=== PATIENT | female | born 1960 | race African-American/Black ===

== ENCOUNTER 2022-05-10 19:18 | Emergency (ER) | payer OTHER ==
[~2022-05-10] VITALS: Ht 165.1 cm; Wt 94.3 kg
[2022-05-10] MEDS ORDERED: HYDROCODONE/APAP 5MG-325MG TAB PO ONE (20:00)
[2022-05-10] MEDS ORDERED: CYCLOBENZAPRINE HCL 10 MG TAB PO ONE (20:00)
[2022-05-10] MEDS ORDERED: CYCLOBENZAPRINE HCL 10 MG TAB ONE (20:21)
[2022-05-10] MEDS ORDERED: HYDROCODONE/APAP 5MG-325MG TAB ONE (20:21)
[2022-05-10] MEDS ORDERED: CYCLOBENZAPRINE5 MG PO ×2 (21:13→21:35)
[2022-05-10] MEDS ORDERED: MELOXICAM7.5 MG PO ×2 (21:13→21:35)
[2022-05-10] MEDS ORDERED: LORAZEPAM 0.5 MG TAB PO ONE (21:45)
[2022-05-10] MEDS ORDERED: LORAZEPAM 0.5 MG TAB ONE (21:54)
[2022-05-11] MEDS ORDERED: LORAZEPAM 0.5 MG TAB PO ONE
[2022-05-11] MEDS ORDERED: DIAZEPAM 2 MG TAB PO SCH (09:00)
== END 2022-05-10 22:00 | disposition home or self-care (01) ==
LOC: FSED 19:47
DX: R51.9 Headache, unspecified (principal); M54.2 Cervicalgia; E11.9 Type 2 diabetes mellitus without complications; G47.30 Sleep apnea, unspecified
CPT/HCPCS: 70450; 72125; 99283

== ENCOUNTER 2023-10-07 09:41 | Inpatient (IN) | payer OTHER ==
[~2023-10-07] VITALS: Ht 165.1 cm; Wt 92.5 kg
[~2023-10-07 09:41] MED LIST: CYCLOBENZAPRINE5 MG PO; MELOXICAM7.5 MG PO
[2023-10-07] MEDS ORDERED: METFORMIN HCL500 M2 PO (10:41)
[2023-10-07] MEDS ORDERED: LISINOPRIL10 MG PO (10:41)
[2023-10-07] MEDS ORDERED: ATORVASTATIN CA20 MG PO (10:41)
[2023-10-07] MEDS ORDERED: VITAMIN D350 MCG (10:41)
[2023-10-07] MEDS ORDERED: MULTIVITAMINS1 EAC6 PO (10:41)
[2023-10-07] MEDS: KETOROLAC TROMETHAMINE 30 MG/ML VIAL IV STA (12:14)
[2023-10-07] MEDS: ASPIRIN 81 MG CHEW TAB PO ONE (13:43)
[2023-10-07] MEDS ORDERED: ONDANSETRON HCL INJ 2MG/ML 2ML 2 MG/ML VIAL IV PRN (13:45)
[2023-10-07] MEDS ORDERED: NITROGLYCERIN 0.4 MG SUBL SL PRN (13:45)
[2023-10-07] MEDS ORDERED: SODIUM CHLORIDE FLUSH 10 ML SYR INJ PRN (13:45)
[2023-10-07] MEDS: INSULIN LISPRO 100 UNIT/1 ML 3ML VIAL SQ SCH (16:30)
[2023-10-07] MEDS ORDERED: DEXTROSE 50% SYRINGE 50 ML IV PRN (16:30)
[2023-10-07] MEDS ORDERED: HYDRALAZINE HCL 20 MG/ML VIAL IV PRN (16:30)
[2023-10-07] MEDS: METHYLPREDNISOLONE SOD SUCC 125 MG/2ML VIAL IV ONE (18:42)
[2023-10-07 20:21] LABS: TROPONIN I < 0.05 ng/mL (0.0-0.40)
[2023-10-07 20:40] VITALS: PULSE 65; RESP 20; TEMP 98.1
[2023-10-07 21:30] VITALS: BP 117/65; PULSE 65; RESP 18; TEMP 98.1; O2SAT 99
[2023-10-07] MEDS: ATORVASTATIN 20 MG TAB PO SCH (21:59)
[2023-10-07 22:38] LABS: CREATINE KINASE 130 IU/L (29-168)
[2023-10-08] VITALS (8 sets, daily range): BP systolic 118–128; BP diastolic 67–83; PULSE 55–79; RESP 18–20; TEMP 97.8–98.8; O2SAT 99–100
[2023-10-08 07:21] LABS: ALBUMIN 3.4 g/dL (3.5-5.0); ALBUMIN/GLOBULIN RATIO 1.1 (0.8-2.0); ANION GAP 12.5 mmol/L (8-16); BILIRUBIN,TOTAL 0.7 mg/dL (0.2-1.2); CALCIUM 8.9 mg/dL (8.4-10.2); CREATININE, SERUM 0.79 mg/dL (0.57-1.11); POTASSIUM 4.5 mmol/L (3.5-5.1); TOTAL PROTEIN 6.4 g/dL (6.5-8.1)
[2023-10-08 07:53] LABS: BASOPHILS % 0.6 % (0.0-1.0); EOSINOPHILS # (AUTO) 0.2 (0.0-0.4); EOSINOPHILS % 3.2 % (0.0-6.0); HEMOGLOBIN 12.5 g/dL (12.0-16.0); LYMPHOCYTES # (AUTO) 1.5 (1.0-3.2); LYMPHOCYTES % 32.3 % (18.0-39.1); MEAN CORPUSCULAR HEMOGLOBIN 29.8 pg (28-32); MEAN CORPUSCULAR HGB CONC 32.1 g/dL (31-35); MEAN CORPUSCULAR VOLUME 93.1 fL (81-99); MONOCYTES # (AUTO) 0.4 (0.2-0.8); MONOCYTES % 8.1 % (4.4-11.3); NEUTROPHILS # (AUTO) 2.6 (2.1-6.9); NEUTROPHILS % 55.6 % (38.7-80.0); PLATELET COUNT 178 x10e3/uL (140-360); RED BLOOD COUNT 4.19 x10e6/uL (3.6-5.1); RED CELL DISTRIBUTION WIDTH 11.1 % (11.7-14.4); WHITE BLOOD COUNT 4.71 x10e3/uL (4.8-10.8)
[2023-10-08 08:46] LABS: CHOL/HDL RATIO 3.1 (3.0-3.6)
[2023-10-08] MEDS: MULTIVITAMINS/MINERALS TAB PO SCH (09:24)
[2023-10-08] MEDS: LISINOPRIL 10 MG TAB PO SCH (09:25)
[2023-10-08] MEDS: KETOROLAC TROMETHAMINE 30 MG/ML VIAL IM PRN (09:45)
[2023-10-08 14:05] LABS: TROPONIN I < 0.030 ng/mL (0-0.300)
[2023-10-08 16:57] LABS: CREATINE KINASE 111 IU/L (29-168)
[2023-10-08] MEDS: METFORMIN HCL 500 MG TAB CR PO SCH (17:17)
[2023-10-08] MEDS: ACETAMINOPHEN 325 MG TAB PO PRN (17:20)
[2023-10-09] VITALS: BP 114/81; PULSE 59; RESP 18; TEMP 98; O2SAT 98
[2023-10-09 04:00] VITALS: BP 145/82; PULSE 65; RESP 20; TEMP 98.7; O2SAT 100
[2023-10-09 06:36] LABS: CREATINE KINASE 97 IU/L (29-168)
[2023-10-09 08:00] VITALS: BP 133/78; PULSE 57; RESP 18; TEMP 98; O2SAT 100
[2023-10-09 11:57] VITALS: BP 133/73; PULSE 66; RESP 20; TEMP 98.2; O2SAT 99
[2023-10-09 13:07] LABS: TROPONIN I < 0.030 ng/mL (0-0.300)
[2023-10-09 15:47] VITALS: BP 135/89; PULSE 62; RESP 20; TEMP 97.7; O2SAT 99
[2023-10-09 20:00] VITALS: BP 119/75; PULSE 65; RESP 18; TEMP 97.8; O2SAT 100
[2023-10-10] VITALS (8 sets, daily range): BP systolic 107–143; BP diastolic 58–79; PULSE 55–64; RESP 16–20; TEMP 97.4–98.2; O2SAT 97–100
[2023-10-10] MEDS ORDERED: ONDANSETRON HCL 4 MG ORAL DISINTEGRATING TAB PO PRN (15:45)
[2023-10-11] VITALS: BP 106/62; PULSE 75; RESP 18; TEMP 97.8; O2SAT 98
[2023-10-11 04:00] VITALS: BP 138/66; PULSE 57; RESP 18; TEMP 98.4; O2SAT 99
[2023-10-11 05:30] LABS: BASOPHILS % 0.4 % (0.0-1.0); EOSINOPHILS # (AUTO) 0.2 (0.0-0.4); HEMOGLOBIN 12.9 g/dL (12.0-16.0); LYMPHOCYTES # (AUTO) 1.8 (1.0-3.2); LYMPHOCYTES % 33.9 % (18.0-39.1); MEAN CORPUSCULAR HEMOGLOBIN 29.7 pg (28-32); MEAN CORPUSCULAR HGB CONC 31.5 g/dL (31-35); MEAN CORPUSCULAR VOLUME 94.3 fL (81-99); MONOCYTES # (AUTO) 0.4 (0.2-0.8); MONOCYTES % 7.4 % (4.4-11.3); NEUTROPHILS # (AUTO) 2.9 (2.1-6.9); NEUTROPHILS % 54.7 % (38.7-80.0); PLATELET COUNT 174 x10e3/uL (140-360); RED BLOOD COUNT 4.35 x10e6/uL (3.6-5.1); RED CELL DISTRIBUTION WIDTH 11.1 % (11.7-14.4); WHITE BLOOD COUNT 5.28 x10e3/uL (4.8-10.8)
[2023-10-11 06:06] LABS: ANION GAP 11.5 mmol/L (8-16); CALCIUM 9.8 mg/dL (8.4-10.2); CREATININE, SERUM 0.86 mg/dL (0.57-1.11); POTASSIUM 4.5 mmol/L (3.5-5.1)
[2023-10-11 08:47] VITALS: BP 116/69; PULSE 59; RESP 16; TEMP 98.4; O2SAT 100
[2023-10-11 09:00] VITALS: BP 116/69; PULSE 59; RESP 16; TEMP 98.4; O2SAT 100
[2023-10-11] MEDS ORDERED: REGADENOSON 0.4 MG/5 ML SYR IV ONE (11:12)
[2023-10-11 12:54] VITALS: BP 132/65; PULSE 56; RESP 16; TEMP 98; O2SAT 100
[2023-10-11 15:34] VITALS: BP 128/67; PULSE 60; RESP 16; TEMP 98.4; O2SAT 99
== END 2023-10-11 16:12 | disposition home or self-care (01) | DRG 74 ==
LOC: FSED 09:54 → ERHOLD 13:38 → MED/SURG 20:56 → MED/SURG3 10-09 09:43 → OBSVTOIN 10-09 14:08
PROVIDERS: ADMIT Internal Medicine; ATTEND Internal Medicine
DX: M54.12 Radiculopathy, cervical region (principal); E11.65 Type 2 diabetes mellitus with hyperglycemia; R07.89 Other chest pain; I10 Essential (primary) hypertension; E78.00 Pure hypercholesterolemia, unspecified; J44.9 Chronic obstructive pulmonary disease, unspecified; G47.33 Obstructive sleep apnea (adult) (pediatric); Z11.52 Encounter for screening for COVID-19; Z79.84 Long term (current) use of oral hypoglycemic drugs; Z90.710 Acquired absence of both cervix and uterus; Z90.49 Acquired absence of other specified parts of digestive tract; Z82.49 Family history of ischemic heart disease and other diseases of the circulatory system
CPT/HCPCS: 0223U; 36415; 71046; 72125; 78452; 80048; 80053; 80061; 80076; 81003; 82550; 82553; 82948; 83036; 83880; 84443; 84484; 85025; 93005; 93017; 93306; 96372; 96374; 99284; A9502; G0378; J1885; J2919